=== PATIENT | female | born 1960 | race Caucasian/White ===

== ENCOUNTER → 2016-09-24 | Outpatient (CLI) | payer BC ==
[~2016-09-24] MED LIST: ERGO1CAP35 PO
== END | disposition home or self-care (01) ==
LOC: C.PATHSPEC 15:21
PROVIDERS: ATTEND Dermatology
DX: L57.0 Actinic keratosis (principal)

== ENCOUNTER → 2016-10-22 | Outpatient (CLI) | payer BC | END | disposition home or self-care (01) | LOC: C.PATHSPEC 13:20 | PROVIDERS: ATTEND Dermatology | DX: L43.9 Lichen planus, unspecified (principal) ==

== ENCOUNTER → 2016-10-29 | Outpatient (CLI) | payer BC | END | disposition home or self-care (01) | LOC: C.PAPS 11:29 | PROVIDERS: ATTEND Obstetrics & Gynecology | DX: Z01.419 Encounter for gynecological examination (general) (routine) without abnormal findings (principal) ==

== ENCOUNTER → 2016-12-25 | Outpatient (CLI) | payer BC ==
[~2016-12-25] MED LIST changes: +ATOR-22 PO; +DIAZ-165 PO; +IBUP-1428 PO; +MULT-506 PO; +VITAMIN D GUMMY PO
--- NOTE | 2016-12-25 15:06 | MAMMOGRAPHY REPORT ---
BILATERAL DIGITAL SCREENING MAMMOGRAM TOMOSYNTHESIS WITH CAD: 12/25/2016 CLINICAL HISTORY: Routine screening. Patient has no complaints. TECHNIQUE: Breast tomosynthesis in addition to standard 2D mammography was performed. Current study was also evaluated with a Computer Aided Detection (CAD) system. COMPARISON: Comparison is made to exams dated: 12/23/2015 mammogram, 12/20/2014 mammogram, 12/14/2013 jonas mogram, 12/07/2012 mammogram, 12/02/2011 mammogram, and 11/25/2010 mammogram - [facility] nt. BREAST COMPOSITION: The tissue of both breasts is heterogeneously dense, which may obscure small ma sses. FINDINGS: No suspicious masses, calcifications, or areas of architectural distortion are noted in e ither breast. There has been no significant interval change compared to prior exams. IMPRESSION: ACR BI-RADS CATEGORY 1: NEGATIVE There is no mammographic evidence of malignancy. A 1 year screening mammogram is recommended. The p atient will receive written notification of the results. Approximately 10% of breast cancers are not detected with mammography. A negative mammographic repor t should not delay biopsy if a clinically suggestive mass is present. Johanny Wen M.D. ah/:12/25/2016 08:38:38 Surveillance Technician: Kathy HAMM(R)(M), [facility] letter sent: Normal 1/2 BI-RADS Code: ACR BI-RADS Category 1: Negative
== END | disposition home or self-care (01) ==
LOC: C.MAMM 07:14
PROVIDERS: ATTEND Obstetrics & Gynecology
DX: Z12.31 Encounter for screening mammogram for malignant neoplasm of breast (principal)

== ENCOUNTER → 2017-04-08 | Outpatient (CLI) | payer BC ==
[~2017-04-08] MED LIST changes: -ATOR-22 PO; -DIAZ-165 PO; -IBUP-1428 PO; -MULT-506 PO; -VITAMIN D GUMMY PO
--- NOTE | 2017-04-08 08:05 | DIAGNOSTIC IMAGING REPORT ---
MRI OF THE PELVIS AND HIPS WITHOUT CONTRAST CLINICAL HISTORY: Acute left hip pain. Left leg numbness. COMPARISON STUDY: CT of the abdomen and pelvis April 28, 2010. TECHNIQUE: Utilizing 1.5 Christina magnet and dedicated coil, multiplanar, multiecho imaging of the pelvis and hips was performed without intravenous or intra-articular contrast. FINDINGS: No marrow edema or marrow replacement is identified within the pelvis or hips. No evidence for avascular necrosis of the femoral head is noted. There is no hip joint effusion. Hip joint spaces are preserved. There is no significant osteophytosis. Acetabular labrum is suboptimally assessed on this nonarthrogram exam. There is no MRI evidence of trochanteric bursitis. No mass or fluid collection is shown adjacent on this unenhanced examination. There is no pelvic lymphadenopathy. There is no evidence for sacroiliitis. There may be a left foraminal disc protrusion at the L4-L5 level that is suboptimally assessed on this examination. IMPRESSION: 1. No significant abnormality of the pelvis or hips by MRI. 2. Possible small left foraminal disc protrusion at L4-L5 which is suboptimally assessed on this examination. This could be correlated with left L4 radiculopathy and an MRI of the lumbar spine could be obtained if indicated. Electronically signed by: Madi Mcallister M.D. 04/08/2017 8:04 AM Dictated Date/Time: 04/08/2017 7:47 AM
== END | disposition home or self-care (01) ==
LOC: C.MRIBC 06:59
PROVIDERS: ATTEND Physician Assistant
DX: M25.552 Pain in left hip (principal); M54.17 Radiculopathy, lumbosacral region

== ENCOUNTER → 2017-04-15 | Outpatient (CLI) | payer BC ==
--- NOTE | 2017-04-15 07:38 | DIAGNOSTIC IMAGING REPORT ---
MRI OF THE LUMBAR SPINE WITHOUT CONTRAST CLINICAL HISTORY: Lumbar pain with left lower extremity radiculopathy. COMPARISON STUDY: MRI of the pelvis April 08, 2017. TECHNIQUE: Utilizing a 1.5 Christina magnet and dedicated coil, multiplanar, multiecho imaging of the lumbar spine was performed without IV contrast. FINDINGS: For purposes of numbering on this exam, the L5-S1 disc space is assigned to axial image 28 of 30. Alignment of the lumbar spine is anatomic. Vertebral body heights are maintained. There is no marrow replacement. There is no intracanalicular mass or fluid collection. Conus terminates at the lower L2 level. A 2.9 cm T2 hyperintense lesion arising from the upper pole of the left kidney likely reflects a cyst. This is suboptimally assessed on this unenhanced exam. L1-2: There is a small right paracentral abnormality located posterior to the inferior aspect of the L1 vertebral body which likely reflects a disc protrusion with superior subligamentous migration. This results in mild narrowing of the right lateral recess. Neural foramen are patent. L2-3: The central canal and neural foramen are patent. L3-4: The central canal and neural foramen are patent L4-5: A left foraminal disc protrusion is present that has mass effect upon the exiting left L4 nerve root. Central canal and right neural foramen are patent L5-S1: Central canal and neural foramen are patent. IMPRESSION: 1. Small left foraminal disc protrusion at L4-L5 which results in moderate narrowing of the left neural foramen at this level. This could be correlated with left L4 radiculopathy. 2. Small right upper central disc protrusion at L1-L2 with mild narrowing of the right lateral recess at this level. Electronically signed by: Madi Mcallister M.D. 04/15/2017 7:36 AM Dictated Date/Time: 04/15/2017 7:27 AM
== END | disposition home or self-care (01) ==
LOC: C.MRIBC 06:54
PROVIDERS: ATTEND Physician Assistant
DX: M51.17 Intervertebral disc disorders with radiculopathy, lumbosacral region (principal); M99.73 Connective tissue and disc stenosis of intervertebral foramina of lumbar region

== ENCOUNTER → 2017-08-04 | Day surgery (SDC) | payer BC ==
[2017-07-13 08:11] VITALS: BMI 24.0
--- NOTE | 2017-07-13 08:45 | PAT Medication Instructions ---
Service Date Jul 13, 2017. Current Home Medication List Atorvastatin (Lipitor), 20 MG PO HS Diazepam (Valium), 5 MG PO HS PRN for PAIN/MUSCLE SPASM Ibuprofen (Motrin), 800 MG PO Q8H PRN for Pain Multivitamin (Multivitamin), 1 TAB PO QAM [Vitamin D Gummy], 1 TAB PO QAM Medication Instructions For Your Scheduled Surgery - Hold the following medications for 7-10 days prior to surgery per your surgeon 's instructions: Ibuprofen (Motrin), 800 MG PO Q8H PRN for Pain - Hold the following medications the morning of surgery: Multivitamin (Multivitamin), 1 TAB PO QAM [Vitamin D Gummy], 1 TAB PO QAM - Take the following medications the morning of surgery with a sip of water: Diazepam (Valium), 5 MG PO HS PRN for PAIN/MUSCLE SPASM (if needed) - Take the following medications as scheduled the night before surgery: Atorvastatin (Lipitor), 20 MG PO HS Diazepam (Valium), 5 MG PO HS PRN for PAIN/MUSCLE SPASM (if needed) If you have any questions please call us at [phone] or [phone] or [phone]
--- NOTE | 2017-07-13 09:22 | DIAGNOSTIC IMAGING REPORT ---
TWO VIEW CHEST CLINICAL HISTORY: Preoperative examination. FINDINGS: PA and lateral chest radiographs are compared to study dated 05/07/2010. The cardiomediastinal silhouette is unremarkable. The lungs and pleural spaces are clear. There is no pneumothorax. The bony thorax appears intact. IMPRESSION: No active disease in the chest. Electronically signed by: Jevon Tillman M.D. 07/13/2017 9:20 AM Dictated Date/Time: 07/13/2017 9:20 AM
[2017-07-13 10:43] LABS: BASO % 0.2 %; BASO ABS # 0.01 K/uL (0-0.2); COMPLETE YES; EOS % 4.8 %; HEMATOCRIT 39.4 % (37-47); LYMPH % 29.4 %; LYMPH ABS # 1.58 K/uL (1.2-3.4); MEAN CELL VOLUME 94.3 fL (80-100); MEAN CORPUSCULAR HEMOGLOBIN 30.9 pg (25-34); MEAN CORPUSCULAR HGB CONC 32.7 g/dl (32-36); NEUT % 57.6 %; PLATELET COUNT 239 K/uL (130-400); RED BLOOD COUNT 4.18 M/uL (4.2-5.4); WHITE BLOOD COUNT 5.37 K/uL (4.8-10.8)
[2017-07-13 10:45] LABS: URINE APPEARANCE CLEAR (CLEAR); URINE BILIRUBIN NEG (NEG); URINE COLOR YELLOW; URINE NITRITE NEG (NEG); URINE PH 6.5 (4.5-7.5); URINE SPECIFIC GRAVITY 1.014 (1.000-1.030); UROBILINOGEN NEG (NEG)
[2017-07-13 10:50] LABS: BUN/CREATININE RATIO 16.5 (10-20); CALCIUM 9.2 mg/dl (8.5-10.1); CREATININE 0.74 mg/dl (0.60-1.20); POTASSIUM 4.1 mmol/L (3.5-5.1)
[2017-07-13 11:02] LABS: MANUAL MICROSCOPIC REQUIRED? NO; REVIEW REQ? NO
[~2017-08-04] VITALS: Ht 157.5 cm; Wt 60.3 kg
[~2017-08-04] MED LIST changes: +ACETAMINOPHEN 325 MG TAB PO PRN; +ATOR-22 PO; +ATROPINE SULFATE 0.1 MG/ML 5ML SYR IV PRN; +BACITRACIN 50000 UNIT VIAL ONE; +BUPIVACAINE/EPINEPHRINE 0.5% MPF 1:200,000 30 ML VIAL ONE; +CEFAZOLIN 1000MG IV PUSH 5 ML IV SCH; +CEFAZOLIN SOD 1000MG/5 ML IV PUSH IV ONE; +CHECK SCOPOLAMINE PATCH PLACEMENT SCH; +DEXAMETHASONE SOD INJ 4 MG/ML VIAL ONE; +DIAZ-165 PO; -ERGO1CAP35 PO; +EpHEDrine SULFATE INJ 50 MG/ML AMP IV PRN; +FENTANYL CITRATE INJ 50 MCG/1 ML 2 ML VIAL IV PRN; +FENTANYL CITRATE INJ 50 MCG/1 ML 2 ML VIAL ONE; +FLOSEAL HEMOSTATIC MATRIX 5ML TOP ONE; +GLYCOPYRROLATE INJ 0.2 MG/ML VIAL ONE; +HYDROmorphone INJ 1 MG/ML SYR IV PRN; +HYDROmorphone INJ 2 MG/ML SYR/VIAL IV PRN; +IBUP-1428 PO; +KETOROLAC TROMETHAMINE 30 MG/ML VIAL IV. PRN; +LIDOCAINE HCL 2% 2 ML VIAL (20MG/ML) ONE; +MIDAZOLAM HCL 1 MG/ML 2ML VIAL ONE; +MULT-506 PO; +NEOSTIGMINE METHYLSULFATE 1 MG/ML 10ML VIAL ONE; +NURSING VERBAL MED ORDER ONE; +ONDANSETRON INJ 2 MG/ML 2 ML VIAL IV PRN; +ONDANSETRON INJ 2 MG/ML 2 ML VIAL ONE; +PHENYLEPHRINE 100MCG/ML 5ML SYR IV PRN; +PROPOFOL IV EMULSION 10 MG/ML 20 ML VIAL IV ONE; +ROCURONIUM BROMIDE 10 MG/ML 5 ML VIAL IV ONE; +SCOPOLAMINE 1.5 MG TDSY TD ONE; +ULT50X PO; +VITAMIN D GUMMY PO
[2017-08-04 13:29] VITALS: BP 128/87; PULSE 97; TEMP 37.4; O2SAT 98; Ht 157.5 cm; Wt 60.3 kg
--- NOTE | 2017-08-04 14:21 | History & Physical Bridge Note ---
H&P Re-Evaluation Bridge Note: I have examined the patient, reviewed the History & Physical and in the interval since the performance of the History & Physical I have noted the following changes of clinical significance: No changes noted
--- NOTE | 2017-08-04 14:23 | History and Physical ---
History & Physical Date Aug 04, 2017. Chief Complaint Left leg pain History of Present Illness The patient is a 57 year old female with complaints of left leg pain Additional History Hepatic Disease: No Endocrine Disorder: No Kidney Disease: No Hypertension: No Heart Disease: No Bleeding Tendencies: No Infectious Diseases: No Allergies Coded Allergies: Azithromycin (Verified Allergy, Intermediate, HIVES, 08/04/17) Sulfa Drugs (Verified Allergy, Intermediate, HIVES, 08/04/17) Codeine (Verified Allergy, Unknown, SEVERE GI UPSET, 08/04/17) Morphine (Verified Adverse Reaction, Unknown, SEVERE NAUSEA AND VOMITING, 08/04/17) Home Medications Scheduled Atorvastatin (Lipitor), 20 MG PO HS Multivitamin (Multivitamin), 1 TAB PO QAM [Vitamin D Gummy], 1 TAB PO QAM Scheduled PRN Diazepam (Valium), 5 MG PO HS PRN for PAIN/MUSCLE SPASM Ibuprofen (Motrin), 800 MG PO Q8H PRN for Pain Physical Examination Skin: warm/dry, no rash Eyes: normal inspection, EOMI, sclerae normal ENT: normal ENT inspection, pharynx normal Head: normocephalic, atraumatic Neck: supple, no adenopathy, trachea midline Respiratory/Chest: lungs clear, normal breath sounds, no respiratory distress Cardiovascular: regular rate, rhythm, no edema, no murmur Abdomen / GI: normal bowel sounds, non tender Back: normal inspection Extremities: normal inspection, normal range of motion Neurologic/Psych: no motor/sensory deficits, alert, normal reflexes, oriented x 3 Diagnosis Herniated nucleus pulposus L4 5 on the left Plan of Treatment L4 5 microdiscectomy on the left
--- NOTE | 2017-08-04 16:12 | Discharge Instructions ---
Discharge Instructions Date of Service Aug 04, 2017. Admission Reason for Admission: Lumbar Spinal Stenosis Discharge Discharge Diagnosis / Problem: herniated was pulposus L4 5 Discharge Goals Goal(s): Decrease discomfort Activity Recommendations Activity Limitations: per Instructions/Follow-up section . Instructions / Follow-Up Instructions / Follow-Up ACTIVITY RECOMMENDATIONS: SELF CARE INSTRUCTIONS AFTER A LAMINECTOMY 1. No prolonged sitting (less than 30 minutes for the first 3 weeks after surgery). 2. No bending, lifting more than 5 pounds, or twisting (roll like a log when turning in bed). 3. You may shower 3 days after surgery if no drainage from wound. Thoroughly dry wound. Do not soak in the tub. 4. Please walk as much as you can for exercise. Gradually increase the distance that you walk as your endurance increases. 5. You may drive in 7-10 days if you are comfortable and no longer requiring pain medications. SPECIAL CARE INSTRUCTIONS: VERY IMPORTANT TO READ AND REVIEW A. Your surgical incision has been closed with a cosmetic suture under the skin that will dissolve in about 6 weeks. In 14 days, you can use a pair of clean scissors and cut the suture that is left outside of the skin at the ends of your incision. B. Complications are uncommon, but please contact us if you have any signs or symptoms of: 1. wound infection (fever higher than 102.5 degrees F, redness, separation of wound, drainage, or increasing pain from the incision) 2. blood clots in legs (pain, swelling, redness and warmth in legs) 3. urinary tract infection (fever higher than 102.5 degrees, burning upon urination or increased frequency of urination) 4. nerve problems (inability to walk on your toes or heels, numbness, loss of bowel or bladder control) 5. any other symptoms that concern you. C. Please call the office at if you have any concerns or questions about your operation or recovery. MANAGING PAIN AFTER SPINAL SURGERY 1. Narcotic medication is intended for short-term use and will be provided for surgical pain. Surgical pain usually lasts for a period of 4-6 weeks. Narcotic medication includes Percocet, Vicodin, Darvocet, Tylenol #3 or Lortab. 2. Longer-term pain is more appropriately treated with non-narcotic medication such as Tylenol ES. 3. Muscle spasm is not appropriately treated with narcotics. Muscle relaxers such as Soma, Flexeril or Skelaxin can be used along with Tylenol ES. 4. Remember that we all live with some "aches and pains". This is not unusual or uncommon after an injury or as we get older. 5. We will provide appropriate medication within the normal guidelines of their prescribed use. We will also be very cautious and aware of potential abuse and extended duration of patients' medication needs. 6. Please allow 2-3 days to process refills. Prescriptions will not be mailed but must be picked up at the office. FOLLOW UP VISIT: Keep your scheduled follow-up appointment. Any questions, please call the office at . Current Hospital Diet Patient's current hospital diet: Discharge Diet Recommended Diet: Regular Diet Procedures Procedures Performed: Left L4-L5 Microdiscectomy Pending Studies Studies pending at discharge: no Medical Emergencies . Who to Call and When: Medical Emergencies: If at any time you feel your situation is an emergency, please call 911 immediately. . Non-Emergent Contact Non-Emergency issues call your: Primary Care Provider . "Provider Documentation" section prepared by Papo Russell. . VTE Core Measure Inpt VTE Proph given/why not?: Huber Mishra, SCD's
--- NOTE | 2017-08-04 16:18 | [facility] Operative Report ---
Operative Report Operative Date Aug 04, 2017. Pre-Operative Diagnosis lumbar spinal stenosis Post-Operative Diagnosis lumbar spinal stenosis Procedure(s) Performed Left L4-L5 Microdiscectomy Surgeon Dr. Papo Russell Corporate Counselor Surgeon(s) Kandice PIERCE Estimated Blood Loss 50ML Findings Herniated disc L4 5 Specimens none per surgeon Description of Procedure Patient was met with preoperatively case discussed all questions addressed. After informed consent obtained patient was taken to the operative suite underwent intubation placed in prone position the Cornelius table on top of the Scot frame. All bony prominences were well-padded eyes inspected to ensure no external pressure placed upon them. This point the lumbar spine was prepped and draped in normal sterile fashion. With the assistance of fluoroscopy identified the 45 disc space and midline incision was created overlying this region. Sharp dissection with the assistance of Bovie cautery was performed onto an exposing the interlaminar space L4 5 on the left. We verified our position with fluoroscopy. Then performed partial laminectomy on the left including medial facetectomy and foraminotomy to completely clear the L4 nerve root of any neural encroachment. All loose fragments were addressed. Was explored several times ensure the root was completely decompressed. Incision was in copious irrigated. Was then closed 1 Vicryl in the fascia 2-0 Vicryl subcutaneous tediously 4 Monocryl for final skin closure Steri-Strips sterile dressings placed. Patient we can taken to PACU stable condition. Please note Kandice Hector was present at the entire procedure involved in patient positioning complex portions of the surgery and final skin closure. I attest to the content of the Intraoperative Record and any orders documented therein. Any exceptions are noted below.
--- NOTE | 2017-08-04 16:28 | DIAGNOSTIC IMAGING REPORT ---
SPINE ONE VIEW, ANY LEVEL CLINICAL HISTORY: 57 years-old Female presenting with L4-5 MICRODISCECTOMY. TECHNIQUE: 1 fluoroscopic spot image(s) obtained as part of an intraoperative procedure. COMPARISON: MR L spine from 04/15/2017. FINDINGS/IMPRESSION: A surgical pin or fixation device is noted over the region of what appears to the L4 level. Grossly normal anatomic alignment. Please see surgical report for further details. Fluoroscopy dosage (mGy): 6.18. Fluoroscopy time: 8.2 seconds. Number of fluoroscopic spot images: 1. Electronically signed by: Luke Marrero M.D. 08/04/2017 4:27 PM Dictated Date/Time: 08/04/2017 4:26 PM
--- NOTE | 2017-08-04 17:01 | Anesthesiology Progress Note ---
Anesthesia Post Op Note Date & Time Aug 04, 2017 at 17:01 Vital Signs Pain Intensity: 0 Vital Signs Past 12 Hours Date Time Temp Pulse Resp B/P (MAP) Pulse Ox O2 Delivery O2 Flow Rate FiO2 08/04/17 16:55 81 10 126/78 95 Room Air 08/04/17 16:45 88 12 128/78 100 Oxymask 10 08/04/17 16:35 95 12 131/77 100 Oxymask 10 08/04/17 16:28 36.1 98 18 140/90 100 Oxymask 10 08/04/17 13:29 37.4 97 18 128/87 (101) 98 Room Air Notes Mental Status: alert / awake / arousable, participated in evaluation Pt Amnestic to Procedure: Yes Nausea / Vomiting: adequately controlled Pain: adequately controlled Airway Patency, RR, SpO2: stable & adequate BP & HR: stable & adequate Hydration State: stable & adequate Anesthetic Complications: no major complications apparent
[2017-08-04 18:15] VITALS: TEMP 36.5
[2017-08-04 19:15] VITALS: BP 109/62; PULSE 83; O2SAT 98
== END | disposition home or self-care (01) ==
LOC: C.ACU 12:57
PROVIDERS: ATTEND Orthopaedic Surgery Orthopaedic Surgery of the Spine
DX: M48.061 Spinal stenosis, lumbar region without neurogenic claudication (principal); E78.5 Hyperlipidemia, unspecified; Z79.899 Other long term (current) drug therapy

== ENCOUNTER → 2018-01-03 | Outpatient (CLI) | payer OTHER ==
[~2018-01-03] MED LIST changes: -ACETAMINOPHEN 325 MG TAB PO PRN; -ATROPINE SULFATE 0.1 MG/ML 5ML SYR IV PRN; -BACITRACIN 50000 UNIT VIAL ONE; -BUPIVACAINE/EPINEPHRINE 0.5% MPF 1:200,000 30 ML VIAL ONE; -CEFAZOLIN 1000MG IV PUSH 5 ML IV SCH; -CEFAZOLIN SOD 1000MG/5 ML IV PUSH IV ONE; -CHECK SCOPOLAMINE PATCH PLACEMENT SCH; -DEXAMETHASONE SOD INJ 4 MG/ML VIAL ONE; -EpHEDrine SULFATE INJ 50 MG/ML AMP IV PRN; -FENTANYL CITRATE INJ 50 MCG/1 ML 2 ML VIAL IV PRN; -FENTANYL CITRATE INJ 50 MCG/1 ML 2 ML VIAL ONE; -FLOSEAL HEMOSTATIC MATRIX 5ML TOP ONE; -GLYCOPYRROLATE INJ 0.2 MG/ML VIAL ONE; -HYDROmorphone INJ 1 MG/ML SYR IV PRN; -HYDROmorphone INJ 2 MG/ML SYR/VIAL IV PRN; -KETOROLAC TROMETHAMINE 30 MG/ML VIAL IV. PRN; -LIDOCAINE HCL 2% 2 ML VIAL (20MG/ML) ONE; -MIDAZOLAM HCL 1 MG/ML 2ML VIAL ONE; -NEOSTIGMINE METHYLSULFATE 1 MG/ML 10ML VIAL ONE; -NURSING VERBAL MED ORDER ONE; -ONDANSETRON INJ 2 MG/ML 2 ML VIAL IV PRN; -ONDANSETRON INJ 2 MG/ML 2 ML VIAL ONE; -PHENYLEPHRINE 100MCG/ML 5ML SYR IV PRN; -PROPOFOL IV EMULSION 10 MG/ML 20 ML VIAL IV ONE; -ROCURONIUM BROMIDE 10 MG/ML 5 ML VIAL IV ONE; -SCOPOLAMINE 1.5 MG TDSY TD ONE
--- NOTE | 2018-01-03 15:09 | MAMMOGRAPHY REPORT ---
BILATERAL DIGITAL SCREENING MAMMOGRAM TOMOSYNTHESIS WITH CAD: 01/03/2018 CLINICAL HISTORY: Routine screening. Patient has no complaints. TECHNIQUE: Breast tomosynthesis in addition to standard 2D mammography was performed. Current study was also evaluated with a Computer Aided Detection (CAD) system. COMPARISON: Comparison is made to exams dated: 12/25/2016 mammogram, 12/23/2015 mammogram, 12/20/2014 jonas mogram, 12/14/2013 mammogram, 12/07/2012 mammogram, and 12/02/2011 mammogram - [facility] er. BREAST COMPOSITION: The tissue of both breasts is heterogeneously dense, which may obscure small mas ses. FINDINGS: The parenchymal pattern is unchanged. No developing mass, architectural distortion or clus ter of suspicious microcalcifications is seen in either breast. IMPRESSION: ACR BI-RADS CATEGORY 2: BENIGN There is no mammographic evidence of malignancy. A 1 year screening mammogram is recommended. The pa tient will receive written notification of the results. Approximately 10% of breast cancers are not detected with mammography. A negative mammographic report should not delay biopsy if a clinically suggestive mass is present. Kelly Sahni M.D. ay/:01/03/2018 08:01:13 Egg Pasteurizer: Tiffany HAMM(Kendrick)(M), [facility] letter sent: Normal 1/2 BI-RADS Code: ACR BI-RADS Category 2: Benign
== END | disposition home or self-care (01) ==
LOC: C.MAMM 07:19
PROVIDERS: ATTEND Obstetrics & Gynecology
DX: Z12.31 Encounter for screening mammogram for malignant neoplasm of breast (principal)